=== PATIENT | female | born 1995 | race Caucasian/White ===

== ENCOUNTER 2024-01-25 08:42 | Outpatient (CLI) | payer OTHER ==
[~2024-01-25] VITALS: Ht 165.1 cm; Wt 95.9 kg
--- NOTE | 2024-01-25 08:55 | NUR ---
Pt arrived on unit ambulatory for scheduled version. Pt denies any regular contractions, leaking of fluid or vaginal bleeding and reports normal movement. EFM and toco monitors started. Vital signs WNL. Plan of care for version reviewed with pt and at the bedside. Call light within reach.
[2024-01-25] MEDS ORDERED: PNV-SELECT1 TAB PO (09:31)
[2024-01-25] MEDS ORDERED: MAGNESIUM ELEM300 MG PO (09:32)
[2024-01-25] MEDS ORDERED: Terbutaline 1 MG/ML 1 ML AMP SQ PRN (09:45)
[2024-01-25] MEDS ORDERED: LR 1,000 ML IV ONE (09:51)
[2024-01-25 10:00] VITALS: BP 117/67; PULSE 83; TEMP 98
--- NOTE | 2024-01-25 10:05 | NUR ---
1000: AT BEDSIDE FOR EXTERNAL VERSION. 1001: PT OFF EFM STARTS EXTERNAL VERSION, JULIET CHEN,IZAIAH, THIS RN, CHARGE NURSE ROSEANNE FERRARO PRESENT. 1003: US PT, SUCCESSFUL VERSION COMPLETED, EFM REPLACED WILL CONTINUE TO MONITOR FOR 1HR. NO OTHER CONCERNS.
[2024-01-25 11:19] VITALS: BP 115/64; PULSE 92; TEMP 97.9
--- NOTE | 2024-01-25 11:42 | NUR ---
1125: PT IV REMOVED AND INSTRUCTED TO CHANGE INTO PERSONAL CLOTHING. 1135: DISCHARGE INSTRUCTIONS GIVEN, PT VERBALIZED UNDERSTANDING. DENIES ANY CONTRACTIONS, LOF OR VAGINAL BLEEDING AT TIME OF DISCHARGE. 1140: PT AMBULATED OFF UNIT WITH SPOUSE AT SIDE. NO OTHER CONCERNS.
== END 2024-01-25 11:40 | disposition home or self-care (01) ==
LOC: LDRO 08:42
DX: O32.8XX0 Maternal care for other malpresentation of fetus, not applicable or unspecified (principal); Z3A.00 Weeks of gestation of pregnancy not specified
CPT/HCPCS: J3105; J7120

== ENCOUNTER 2024-02-05 05:59 | Inpatient (IN) | payer OTHER ==
[~2024-02-05] VITALS: Ht 162.6 cm; Wt 94.1 kg
[2024-02-05] VITALS (18 sets, daily range): BP systolic 112–137; BP diastolic 62–83; PULSE 77–89; TEMP 98.3
[~2024-02-05 05:59] MED LIST: MAGNESIUM ELEM300 MG PO; PNV-SELECT1 TAB PO
--- NOTE | 2024-02-05 06:10 | NUR ---
PT AMBULATORY TO LR 5 WITH SPOUSE AT SIDE. THE PATIENT IS HERE FOR C/O CONTRACTIONS EVERY 5 MINUTES. THE PATIENT IS A G4L1 GBS-. SVE IS 5-6/80/-3. PT STATES CONTRACTIONS STARTED LAST NIGHT AROUND 2129. PT DENIES LOF/VB. STATES GOOD MOVEMENT. PT CHANGED INTO CLEAN GOWN AND PLACED ON EFM. FHR CATEGORY 1 AND CONTRACTIONS TRACING 5 MINUTES APART. NOTIFIED PHYSICIAN; ADMIT ORDERS OBTAINED.
[2024-02-05] MEDS ORDERED: LR 1,000 ML IV SCH (07:30)
[2024-02-05] MEDS ORDERED: LR & Oxytocin 500 ML IV SCH (07:30)
[2024-02-05 08:18] LABS: BASO % 0.2 % (0.0-2.0); EOS # 0.2 K/mm3 (0.0-0.7); EOS % 1.1 % (0.0-4.0); GRAN # 11.9 K/mm3 (1.4-6.5); GRAN % 78.9 % (42.2-75.2); HEMATOCRIT 37.1 % (37.0-47.0); HEMOGLOBIN 12.3 g/dl (12.5-16.0); LYMPH # 1.6 K/mm3 (1.2-3.4); LYMPH % 10.9 % (20.0-51.0); MEAN CELL VOLUME 84 fl (80.0-100.0); MEAN CORPUSCULAR HEMOGLOBIN 28 pg (27-31); MEAN CORPUSCULAR HGB CONC 33 g/dl (33.0-37.0); MEAN PLATELET VOLUME 11.3 fl (7.4-10.4); MONO # 1.2 K/mm3 (0.1-0.6); PLATELET COUNT 234 K/mm3 (130-400); RED BLOOD COUNT 4.44 M/mm3 (4.10-5.30); REDCELL DISTRIBUTION WIDTH-CV 15.7 % (11.5-14.5)
--- NOTE | 2024-02-05 09:00 | NUR ---
PT IS ON INTERMITTENT MONITORING AT THIS TIME.
--- NOTE | 2024-02-05 13:30 | NUR ---
APPROXIMATELY 1244 PT FELT A LOT OF PRESSURE. SVE 9/100/0 NOTIFIED THAT THE PATIENT REALLY FEELS LOTS OF PRESSURE AND FEELS THE URGE TO PUSH. AT BEDSIDE AT 1300: ASSESSED PT, AND AGREES THE PATIENT CAN BEGIN PUSHING. PREPARED THE ROOM FOR DELIVERY. 1315: OF VIABLE FEMALE INFANT. STIMULATED PER AND PLACED ON MATERNAL ABDOMEN. DELAYED CORD CLAMPING PER , CORD CLAMPED X2 AND FOB CUT CORD. MOVED TO MATERNAL CHEST FOR SKIN TO SKIN, CARE OF ASSUMED BY NURSERY NURSEROBIRN. CORD BLOOD OBTAINED AND PASSED OFF TO ROSEANNE WOOD. 1327: OF INTACT PLACENTA. FUNDAL MASSAGE PER . PT REFUSED PITOCIN. ASSESSMENT OF VAGINAL LACERATION, PT IS INTACT WITH SOME SUPERFICIAL LACERATIONS. DELIVERY QBL 50. 1330: PT REPOSITIONED TO SEMIFOWLERS WITH ICEPACK TO THE PERINEUM. RECOVERY STARTED AT THIS TIME. NO OTHER CONERNS; WILL CONTINUE TO MONITOR THROUGH RECOVERY.
[2024-02-05] MEDS ORDERED: Magnes Hydrox (MOM) 80 MG/ML 30 ML CUP PO PRN (13:45)
[2024-02-05] MEDS ORDERED: Loratadine 10 MG TAB PO PRN (13:45)
[2024-02-05] MEDS ORDERED: oxyCODONE 5 MG TAB PO PRN (14:00)
[2024-02-05] MEDS ORDERED: Measles/Mumps/Rubella Virus Vaccine Live w Diluent 0.5 ML VIAL SQ SCH (14:00)
[2024-02-05] MEDS ORDERED: Phenylephrine/Mineral Oil/Petrolatum 57 GM TUBE RC PRN (14:00)
[2024-02-05] MEDS ORDERED: Naloxone 0.4 MG/ML VIAL IV PRN (14:00)
[2024-02-05] MEDS ORDERED: Witch Hazel 50% Pads Bulk TUB TP PRN (14:00)
[2024-02-05] MEDS ORDERED: Ibuprofen 600 MG TAB PO SCH (14:00)
[2024-02-05] MEDS ORDERED: Acetaminophen 500 MG TAB PO SCH (14:00)
[2024-02-05] MEDS ORDERED: Mag/Al Hydrox/Simeth Susp 30 ML CUP PO PRN (14:00)
[2024-02-05] MEDS ORDERED: Sennosides/Docusate 8.6-50 MG TAB PO SCH (17:00)
[2024-02-05] MEDS ORDERED: traZODone 50 MG TAB PO PRN (21:00)
[2024-02-06 00:11] VITALS: BP 98/58; PULSE 80; TEMP 98
[2024-02-06 04:23] VITALS: BP 96/54; PULSE 67; TEMP 98.2
[2024-02-06 05:29] LABS: HEMOGLOBIN 11.1 g/dl (12.5-16.0)
[2024-02-06 05:30] LABS: HEMATOCRIT 32.8 % (37.0-47.0)
[2024-02-06] MEDS ORDERED: Rho(D) Imm Globulin 1,500 UNITS (300 MCG)/2 ML SYRINGE IV\\IM SCH (08:00)
[2024-02-06 08:05] VITALS: BP 95/56; PULSE 75; TEMP 99.3
[2024-02-06] MEDS ORDERED: Prenatal Vitamins/Iron/FA TAB PO SCH (09:00)
--- NOTE | 2024-02-06 10:24 | NUR ---
Initial visit; Parents thanked [employer] for looking in on them and offering Congratulations and God's blessings for the of their daughter. [employer] thanked family for choosing [facility].
--- NOTE | 2024-02-06 16:20 | NUR ---
DISCHARGE EDUCATION GIVEN TO PATIENT. THE PATIENT AND SPOUSE VERBALIZED UNDERSTANDING. THE PATIENT HAS NO QUESTIONS. ALL PATIENT BELONGINGS GATHERED AND ACCOUNTED FOR. NO OTHER CONCERNS. PT AMBULATED OFF THE UNIT AT 1620.
== END 2024-02-06 16:20 | disposition home or self-care (01) | DRG 807 ==
LOC: LDRO 05:59 → LDR 07:38 → OB 07:38
PROVIDERS: ADMIT Obstetrics & Gynecology
PROC: 10E0XZZ Delivery of Products of Conception, External Approach (ICD-10-PCS; principal; 2024-02-05)
DX: O36.63X0 Maternal care for excessive fetal growth, third trimester, not applicable or unspecified (principal); Z37.0 Single live birth; Z3A.39 39 weeks gestation of pregnancy; Z14.1 Cystic fibrosis carrier; Z67.11 Type A blood, Rh negative; O77.0 Labor and delivery complicated by meconium in amniotic fluid; O26.893 Other specified pregnancy related conditions, third trimester
CPT/HCPCS: J2791; J7120